=== PATIENT | female | born 1995 | race Caucasian/White ===

== ENCOUNTER 2017-07-27 13:02 | Observation (INO) | payer MEDICAID ==
--- NOTE | 2017-07-27 13:30 | CPEKG ---
Heart Rate: 132 RR Interval: 455 P-R Interval: 130 QRSD Interval: 88 QT Interval: 260 QTC Interval: 385 P [place]: 83 QRS [place]: 101 T Wave [place]: -84 EKG Severity - ABNORMAL ECG - EKG Impression: SINUS TACHYCARDIA Electronically Signed By: Jamie Palafox 27-Jul-2017 13:55:54
[2017-07-27] MEDS ORDERED: LORazepam 2 MG/ML INJ ONE (13:37)
[2017-07-27] MEDS ORDERED: LORazepam 2 MG/ML INJ IVP ONE ×3 (13:37→16:05)
--- NOTE | 2017-07-27 13:55 | EDPHY ---
H & P Stated Complaint: hyperventilating/asthma exacerbation Time Seen by Provider: 07/27/17 13:16 HPI/ROS: CHIEF COMPLAINT: Dyspnea HISTORY OF PRESENT ILLNESS: The patient presents to the ED with dyspnea, tachycardia and right-sided pleuritic chest pain. The patient reports a history of having this in the past and reportedly was diagnosed with anxiety. She reports she has been using cocaine over the past 2 days. The patient denies any asymmetric calf pain or swelling. The patient does use control pills. The patient denies history of fever, cough or congestion. She denies history of any cardiac abnormalities. The patient takes no additional medications. The patient states her dyspnea is moderate in nature. REVIEW OF SYSTEMS: A comprehensive 10 point review of systems is otherwise negative aside from elements mentioned in the history of present illness. Source: Patient Exam Limitations: No limitations - Personal History LMP (Females 10-55): 22-28 Days Ago Current Tetanus/Diphtheria Vaccine: Yes - Medical/Surgical History Hx Asthma: Yes Hx Chronic Respiratory Disease: No Hx Diabetes: No Hx Cardiac Disease: No Hx Renal Disease: No Hx Cirrhosis: No Hx Alcoholism: No Hx HIV/AIDS: No Hx Splenectomy or Spleen Trauma: No Other PMH: asthma - Social History Smoking Status: Never smoked - Physical Exam Exam: General Appearance: Alert, anxious, tachypneic Eyes: Pupils equal and round no pallor or injection ENT, Mouth: Mucous membranes moist Respiratory: There are no retractions, lungs are clear to auscultation Cardiovascular: Tachycardic Gastrointestinal: Abdomen is soft and nontender, no masses, bowel sounds normal Neurological: A&O, normal motor function, normal sensory exam, normal cranial nerves Skin: Warm and dry, no rashes Musculoskeletal: Neck is supple nontender Extremities: symmetrical, full range of motion Psychiatric: Patient is oriented X 3, there is no agitation Constitutional: Initial Vital Signs Temperature (C) 36.7 C 07/27/17 13:10 Heart Rate 103 H 07/27/17 13:10 Respiratory Rate 98 H 07/27/17 13:10 Blood Pressure 103/64 07/27/17 13:10 O2 Sat (%) 28 L 07/27/17 13:10 O2 Delivery Mode Room Air Allergies/Adverse Reactions: unsure Allergy (Uncoded 07/27/17 13:09) Home Medications: Medication Instructions Recorded Albuterol 07/27/17 Medical Decision Making - Diagnostics EKG Interpretation: EKG: Complete interpretation has been separately recorded in the [facility] archive. Summary impression: Sinus tachycardia, rate 132, nonspecific ST T wave changes noted Imaging Results: Imaging Impressions Chest X-Ray 07/27/17 13:34 Impression: Hyperexpansion with no focal abnormality identified.. ED Course/Re-evaluation: The patient presents to the ED with right-sided pleuritic chest pain, anxiety, tachycardia and tachypnea. The patient had an IV established. She received a L of normal saline. She received 1 mg of IV Ativan x2. Her initial EKG demonstrates sinus tachycardia. The patient's chest x-ray demonstrates no evidence of acute disease. The patient's troponin is normal. The patient received IV Toradol for ongoing chest pain. The patient was evaluated over several hours in the emergency department. She continues to complain of chest pain, anxiety and tachycardia. The patient received 50 mcg of fentanyl 4:00 p.m.. The patient will be admitted to the hospital in a setting of her ongoing tachycardia and chest pain. Consultation is made with Dr. Glynn from the hospitalist service. Differential Diagnosis: Differential diagnosis considered includes asthma, bronchitis, pneumonia, pulmonary embolism, sympathomimetic toxicity - Data Points Laboratory Results: Laboratory Results 07/27/17 13:40 07/27/17 13:40 07/27/17 07/27/17 07/27/17 14:00 13:40 13:40 WBC RBC Hgb Hct MCV MCH MCHC RDW Plt Count MPV Neut % (Auto) Lymph % (Auto) [place] % (Auto) Eos % (Auto) Baso % (Auto) Nucleat RBC Rel Count Absolute Neuts (auto) Absolute Lymphs (auto) Absolute Monos (auto) Absolute Eos (auto) Absolute Basos (auto) Absolute Nucleated RBC Immature Gran % Immature Gran # D-Dimer Sodium 139 mEq/L mEq/L (134-144) Potassium 3.9 mEq/L mEq/L (3.5-5.2) Chloride 103 mEq/L mEq/L (97-110) Carbon Dioxide 19 mEq/l L mEq/l (22-31) Anion Gap 17 mEq/L H mEq/L (8-16) BUN 14 mg/dL mg/dL (7-23) Creatinine 1.0 mg/dL mg/dL (0.6-1.0) Estimated GFR > 60 Glucose 82 mg/dL mg/dL (70-100) Calcium 10.7 mg/dL H mg/dL (8.5-10.4) Phosphorus 1.4 mg/dL L mg/dL (2.5-4.5) Troponin I < 0.012 ng/mL ng/mL (0.000-0.034) TSH 2.660 uIU/mL uIU/mL (0.465-4.680) Beta HCG, Qual NEGATIVE 07/27/17 07/27/17 13:40 13:40 WBC 9.11 10^3/uL 10^3/uL (3.80-9.50) RBC 5.54 10^6/uL H 10^6/uL (4.18-5.33) Hgb 16.9 g/dL H g/dL (12.6-16.3) Hct 45.9 % % (38.0-47.0) MCV 82.9 fL fL (81.5-99.8) MCH 30.5 pg pg (27.9-34.1) MCHC 36.8 g/dL H g/dL (32.4-36.7) RDW 11.8 % % (11.5-15.2) Plt Count 278 10^3/uL 10^3/uL (150-400) MPV 9.6 fL fL (8.7-11.7) Neut % (Auto) 66.6 % % (39.3-74.2) Lymph % (Auto) 24.6 % % (15.0-45.0) [place] % (Auto) 6.7 % % (4.5-13.0) Eos % (Auto) 1.1 % % (0.6-7.6) Baso % (Auto) 0.7 % % (0.3-1.7) Nucleat RBC Rel Count 0.0 % % (0.0-0.2) Absolute Neuts (auto) 6.07 10^3/uL 10^3/uL (1.70-6.50) Absolute Lymphs (auto) 2.24 10^3/uL 10^3/uL (1.00-3.00) Absolute Monos (auto) 0.61 10^3/uL 10^3/uL (0.30-0.80) Absolute Eos (auto) 0.10 10^3/uL 10^3/uL (0.03-0.40) Absolute Basos (auto) 0.06 10^3/uL 10^3/uL (0.02-0.10) Absolute Nucleated RBC 0.00 10^3/uL 10^3/uL (0-0.01) Immature Gran % 0.3 % % (0.0-1.1) Immature Gran # 0.03 10^3/uL 10^3/uL (0.00-0.10) D-Dimer < 0.27 ug/mLFEU ug/mLFEU (0.00-0.50) Sodium Potassium Chloride Carbon Dioxide Anion Gap BUN Creatinine Estimated GFR Glucose Calcium Phosphorus Troponin I TSH Beta HCG, Qual Medications Given: Discontinued Medications Ketorolac Tromethamine (Toradol) 30 mg IVP EDNOW ONE Stop: 07/27/17 15:32 Last Admin: 07/27/17 15:35 Dose: 30 mg Lorazepam (Ativan Injection) 1 mg IVP EDNOW ONE Stop: 07/27/17 13:38 Last Admin: 07/27/17 13:43 Dose: 1 mg Lorazepam (Ativan Injection) 1 mg IVP EDNOW ONE Stop: 07/27/17 14:22 Last Admin: 07/27/17 14:45 Dose: 1 mg Departure - Departure Disposition: [facility] Inpatient Acute Clinical Impression: Chest pain, Anxiety, Tachycardia Condition: Fair Referrals: [facility] [Other] - As per Instructions
[2017-07-27 14:02] LABS: % IMMATURE GRANULYOCYTES 0.3 % (0.0-1.1); ABSOLUTE IMMATURE GRANULOCYTES 0.03 10^3/uL (0.00-0.10); ADD DIFF? NO; ADD MORPH? NO; ADD SCAN? NO; ATYPICAL LYMPHOCYTE FLAG 10 (0-99); FRAGMENT RBC FLAG 0 (0-99); HEMATOCRIT 45.9 % (38.0-47.0); HEMOGLOBIN 16.9 g/dL (12.6-16.3); LEFT SHIFT FLG 0 (0-99); LIPEMIA HEMOLYSIS FLAG 90 (0-99); MEAN CELL HEMOGLOBIN 30.5 pg (27.9-34.1); MEAN CELL HEMOGLOBIN CONCENTR. 36.8 g/dL (32.4-36.7); MEAN CELL VOLUME 82.9 fL (81.5-99.8); MEAN PLATELET VOLUME 9.6 fL (8.7-11.7); PLATELET CLUMPS FLAG 10 (0-99); PLATELET COUNT 278 10^3/uL (150-400); RED BLOOD CELL COUNT 5.54 10^6/uL (4.18-5.33); RED CELL DISTRIBUTION WIDTH 11.8 % (11.5-15.2)
[2017-07-27 14:04] LABS: ANION GAP 17 mEq/L (8-16); CALCIUM 10.7 mg/dL (8.5-10.4); CARBON DIOXIDE 19 mEq/l (22-31); CHLORIDE 103 mEq/L (97-110); GLOMERULAR FILTRATION RATE > 60; GLUCOSE 82 mg/dL (70-100); POTASSIUM 3.9 mEq/L (3.5-5.2); SODIUM 139 mEq/L (134-144)
[2017-07-27 14:16] LABS: TROPONIN I < 0.012 ng/mL (0.000-0.034)
[2017-07-27] MEDS ORDERED: KETOROLAC 30 MG/1 ML SDV IVP ONE (15:31)
[2017-07-27] MEDS ORDERED: fentaNYL 100 MCG/2 ML INJ ONE (15:53)
[2017-07-27] MEDS ORDERED: NS 1,000 ML IV ONE ×2 (15:55→17:40)
[2017-07-27] MEDS ORDERED: fentaNYL 100 MCG/2 ML INJ IVP ONE (15:55)
[2017-07-27] MEDS ORDERED: ONDANSETRON DISINTEGRATING 4 MG TAB PO PRN (17:40)
[2017-07-27] MEDS ORDERED: ACETAMINOPHEN 325 MG TAB PO PRN (17:40)
[2017-07-27] MEDS ORDERED: LORazepam 2 MG/ML INJ IVP PRN (17:40)
[2017-07-27] MEDS ORDERED: ONDANSETRON 4 MG/2 ML VIAL IVP PRN (17:40)
[2017-07-27] MEDS ORDERED: 1/2 NS 1,000 ML IV SCH (17:45)
[2017-07-27] MEDS ORDERED: AUBRA PO SCH (18:00)
--- NOTE | 2017-07-27 18:14 | GHP ---
[f rep st] HISTORY AND PHYSICAL DATE OF ADMISSION: 07/27/2017 CHIEF COMPLAINT: Anxiety. HISTORY OF PRESENT ILLNESS: This is a 21-year-old female with a history of anxiety as well as asthma . She has had a difficult week with a lot of stress. She has had 2 nights of using cocaine. The fi rst night, she did not sleep at all, and then last night she did sleep a couple hours. She woke up t his morning and felt quite anxious. She thought she was having an asthma attack and took several dos es of albuterol. This did not help. She did have some chest pressure, but this seems to be improvin g. She does not usually get heart palpitations. REVIEW OF SYSTEMS: A 10-point review of systems was obtained, and other than stated was negative. PAST MEDICAL HISTORY: Anxiety, asthma. MEDICATIONS: control and albuterol. SOCIAL HISTORY: No smoking. Does not use cocaine regularly. FAMILY HISTORY: Reviewed and noncontributory. PHYSICAL EXAM: VITAL SIGNS: Afebrile, blood pressure is 148/97, heart rate is 119, oxygen saturatio n 99% on room air. GENERAL: The patient is actually quite thin, but in no apparent distress. HEENT : Nonicteric sclerae. Extraocular movements intact. Moist mucous membranes. NECK: Supple. No th yromegaly. LUNGS: Good effort. Clear to auscultation bilaterally. CARDIOVASCULAR: Tachycardic. No murmurs, rubs, gallops. ABDOMEN: Positive bowel sounds. Soft, nontender, nondistended. No hepa tosplenomegaly. EXTREMITIES: No clubbing, cyanosis, or edema. SKIN: Without rash. Dry, intact. NEUROLOGIC: Alert and oriented x3. Moving all 4 extremities equally. PSYCHIATRIC: Normal affect. LABS: Hemoglobin a little bit high. Does show a mild anion gap acidosis. Calcium of 10 and phospho josh a little bit low at 1.4. TSH is 2.6. Beta hCG is negative. EKG personally reviewed and interpreted, shows sinus tachycardia. Chest x-ray personally reviewed and interpreted, is negative. ASSESSMENT: This is a 21-year-old female presenting with tachycardia after 2 nights of using cocaine . PLAN: 1. Sinus tachycardia: Probably related to anxiety and cocaine use, and possibly the albuterol that she took in the morning. I am going to watch her overnight. I think she is also probably a little b it dehydrated. Will give another liter of fluid. Will check an echocardiogram in the morning, just for completeness' sake. If her heart rate returns back to normal, could probably cancel that in the morning. 2. Low phosphorus: Patient is actually quite thin and I guess there is a possibility that there may be some anorexia. I am going to check a pre-albumin and see what her phosphorus is in the morning. She could also have just not eaten for the last couple days. 3. Anxiety: Patient is not really taking any psychiatric medications. I guess could consider SSRI. 4. Asthma: Lungs sounding pretty clear. Will hold off on any beta agonist. /[id number]/MODL
[2017-07-27 18:24] LABS: PREALBUMIN 28.6 mg/dL (17.6-36.0)
[2017-07-27] MEDS: LORazepam 0.5 MG TAB PO PRN (20:30)
[2017-07-28 03:29] VITALS: RESP 17
[2017-07-28 03:59] LABS: % IMMATURE GRANULYOCYTES 0.4 % (0.0-1.1); ABSOLUTE IMMATURE GRANULOCYTES 0.03 10^3/uL (0.00-0.10); ADD DIFF? NO; ADD MORPH? NO; ADD SCAN? NO; ATYPICAL LYMPHOCYTE FLAG 10 (0-99); FRAGMENT RBC FLAG 0 (0-99); HEMATOCRIT 38.6 % (38.0-47.0); HEMOGLOBIN 14.1 g/dL (12.6-16.3); LEFT SHIFT FLG 0 (0-99); LIPEMIA HEMOLYSIS FLAG 90 (0-99); MEAN CELL HEMOGLOBIN 31.3 pg (27.9-34.1); MEAN CELL HEMOGLOBIN CONCENTR. 36.5 g/dL (32.4-36.7); MEAN CELL VOLUME 85.8 fL (81.5-99.8); MEAN PLATELET VOLUME 9.5 fL (8.7-11.7); PLATELET CLUMPS FLAG 30 (0-99); PLATELET COUNT 201 10^3/uL (150-400); RED CELL DISTRIBUTION WIDTH 12.1 % (11.5-15.2)
[2017-07-28 04:22] LABS: ALANINE AMINOTRANSFERASE 36 IU/L (9-52); ALBUMIN 3.4 g/dL (3.5-5.0); ALKALINE PHOSPHATASE 48 IU/L (38-126); ANION GAP 11 mEq/L (8-16); ASPARTATE AMINOTRANSFERASE 25 IU/L (14-46); BILIRUBIN,TOTAL 0.7 mg/dL (0.1-1.4); CALCIUM 8.7 mg/dL (8.5-10.4); CARBON DIOXIDE 17 mEq/l (22-31); CHLORIDE 113 mEq/L (97-110); CREATININE 0.8 mg/dL (0.6-1.0); GLOMERULAR FILTRATION RATE > 60; GLUCOSE 92 mg/dL (70-100); POTASSIUM 4.2 mEq/L (3.5-5.2); SODIUM 141 mEq/L (134-144)
[2017-07-28 11:20] VITALS: BP 116/61; PULSE 94; TEMP 97.8; O2SAT 98
--- NOTE | 2017-07-28 11:28 | ECHO ---
[email or web address] [address] Main: [phone] Fax: Transthoracic Echocardiogram Name: DULCE MARIA AMBROSE MR#: [id number] Study Date: 07/28/2017 Study Time: 09:56 AM Date of : 1995 Age: 21 year(s) Height: 170.2 cm (67 in.) Weight: 50.35 kg (111 lb.) BSA: 1.57 m2 Gender: Female Examination: Echo Indication: tachycardia Image Quality: Adequate Contrast: Requested by: Yariel Glynn BP: 98 mmHg/62 mmHg Heart Rate: Rhythm: Sinus tachycardia Indication: tachycardia Procedure Staff Chief Contract Officer: Sirena Phillips Physician: Lauro Chadwick Requesting Provider: Conclusions: Normal size left ventricle. EF is 64 %. No regional wall motion abnormality. Normal diastolic LV function. Normal appearing vavlular structures. Trivial mitral valve regurgitation. Pulmonary artery pressure is not obtained due to inadequate TR jet. No pericardial effusion. Measurements: Chambers Valvular Assessment AV/MV Valvular Assessment TV/PV Normal Normal Normal Name Value Range Name Value Range Name Value Range Ao Micki (MM): 2.1 cm (2.2 cm-3.7 AV Vmax: 1.30 m/s (1 m/s-1.7 PV Vmax: 0.81 m/s (0.6 m/s-0.9 cm) m/s) m/s) IVSd (2D): 0.7 cm (0.6 cm-1.1 AV maxP mmHg ( - ) PV PGmax: 3 mmHg ( - ) cm) LVOT Vmax: 0.99 m/s (0.7 m/s-1.1 LVDd (2D): 4.0 cm (3.9 cm-5.3 m/s) cm) MV E Vmax: 0.66 m/s ( - ) LVDs (2D): 2.8 cm (2.1 cm-4 MV A Vmax: 0.59 m/s ( - ) cm) MV E/A: 1.12 ( - ) LVPWd (2D): 0.6 cm ( - ) LVEF (MOD4): 64 % (>=55 %) RVDd(2D): 2.4 cm (1.9 cm-3.8 cmmm) Continued Measurements: Chambers Valvular Assessment AV/MV Name Value Name Value Patient: DULCE MARIA AMBROSE Study Date: 07/28/2017 Page 1 of 2 09:56 AM LADs Lon.4 cm MV E/E' Septal: 9.40 LA Area: 8.2 cm2 MV E/E' Lateral: 6.10 RA Area: 7.5 cm2 Findings: Left Ventricle: Normal size left ventricle. No LV hypertrophy. Normal global systolic LV function. EF is 64 %. No regional wall motion abnormality. Normal diastolic LV function. Right Ventricle: Normal size right ventricle. Normal RV function. Left Atrium: The left atrium is normal in size. Right Atrium: The right atrium is normal in size. Mitral Valve: The mitral valve is normal in appearance and function. Trivial mitral valve regurgitation. Aortic Valve: The aortic valve is normal in appearance and function. There is no aortic valve regurgitation. No aortic valve stenosis is present. Tricuspid Valve: The tricuspid valve is normal in appearance and function. There is no tricuspid valve regurgitation. Pulmonary artery pressure is not obtained due to inadequate TR jet. Pulmonic Valve: The pulmonic valve is normal in appearance and function. There is no pulmonic regurgitation seen. Aorta: The aorta is normal. Normal size aortic root measuring 2.1 cm. Pericardium: No pericardial effusion. (No Signature Object) Patient: DULCE MARIA AMBROSE Study Date: 07/28/2017 Page 2 of 2 09:56 AM [id number]
[2017-07-28] MEDS: LORazepam 0.5 MG TAB PO PRN (11:35)
--- NOTE | 2017-07-28 11:50 | HOSPPROG ---
Hospitalist Progress Note Assessment/Plan: #Anxiety attack: very tearful this morning. Ativan. Will start SSRI with frequent episodes at home. Needs to reestablish care with her therapist -start Paxil #Tachycardia: due to cocaine, dehydration. Dimer and echo normal #Cocaine use: does not use regularly. Advised to not use #Disp: DC with mom today Subjective: anxious and very stressed lastely Objective: Vital Signs Temp Pulse Resp BP Pulse Ox 36.6 C 94 17 116/61 98 07/28/17 11:17 07/28/17 11:17 07/28/17 11:17 07/28/17 11:17 07/28/17 11:17 Laboratory Results 07/28/17 03:28 07/28/17 03:28 07/27/17 07/28/17 07/29/17 05:59 05:59 05:59 Intake Total 2618 480 Balance 2618 480 - Physical Exam Constitutional: uncomfortable, other (panicked, crying) Ears, Nose, Mouth, Throat: moist mucous membranes Cardiovascular: tachycardia Respiratory: no respiratory distress, other (shallow breaths, using accessory muscles) Gastrointestinal: normoactive bowel sounds Genitourinary: no bladder fullness Skin: warm Musculoskeletal: full muscle strength Neurologic: AAOx3 Psychiatric: anxious ICD10 Worksheet Patient Problems: Problems Problem Status Onset Anxiety Acute Chest pain Acute Tachycardia Acute
--- NOTE | 2017-07-28 12:25 | ASMTCMCOM ---
CM Note CM Note Notes: 07/28/2018 Case Management Note Met w/pt, mother and boyfriend Rajinder. 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 She has a new job at an [employer]. She expresses that she is struggling with anxiety. Case Management provided phone number and address to [facility] in [place] for follow up with her PCP at the recommendation of Dr. Murphy. No further Case Management d/c needs identified. Family to transport home at d/c. Case Management d/c poc: home independent with follow up as directed. Date Signed: 07/28/2017 12:25 PM Electronically Signed By:Yvonne Lopez RN
--- NOTE | 2017-07-28 14:18 | CPEKG ---
Heart Rate: 114 RR Interval: 526 P-R Interval: 156 QRSD Interval: 94 QT Interval: 324 QTC Interval: 447 P [place]: 75 QRS [place]: 104 T Wave [place]: 1 EKG Severity - BORDERLINE ECG - EKG Impression: SINUS TACHYCARDIA EKG Impression: BORDERLINE RIGHT AXIS DEVIATION EKG Impression: MINIMAL ST DEPRESSION, INFERIOR LEADS Electronically Signed By: Hermelinda Shields 28-Jul-2017 17:47:04
--- NOTE | 2017-07-28 15:57 | GDS ---
[f rep st] DISCHARGE SUMMARY DISCHARGE DIAGNOSES: 1. Anxiety with panic attacks 2 Tachycardia. 3. Cocaine use. 4. Suspected eating disorder. HISTORY OF PRESENT ILLNESS: A 21-year-old female with a past medical history of reported anxiety and asthma who presents with tachycardia. She says she has been under a lot of stress with school and other issues and used cocaine on Friday and Friday night. The first night she did not sleep at all and the night prior to admission, she only slept a couple hours. She woke morning of admission and felt very anxious, thought she was having an asthma attack and took several doses of albuterol. She did notice some chest pressure. HOSPITAL COURSE: 1. Sinus tachycardia: related to anxiety and cocaine use along with extra albuterol: She was hydrated and tachycardia improved. Echocardiogram was unremarkable. D-dimer was negative. 2. Anxiety: had several anxiety attacks this morning and weekly at home. Recommend she returns to her therapist. Start Prozac 20 mg daily and she is agreeable. 3. Hypophosphatemia: The patient is quite thin. Suspect she might have a component of eating disorder. Should follow up with her primary care physician. 4. Asthma. Resume albuterol. 5. Cocaine use: advised cessation DISPOSITION: Patient is stable for discharge home with her mother. NEW MEDICATIONS: Prozac 20 mg daily. FOLLOW UP: 1. Her primary care physician. 2. Her previous therapist as anxiety attacks are occurring more frequently. /[id number]/MODL MTDD
--- NOTE | 2017-07-28 16:08 | ASDISCHSUM ---
Discharge Information Plan Status:Home with No Needs Medically Cleared to Leave:07/27/2017 Discharge Date:07/28/2017 03:34 PM CM D/C Disposition:Home, Routine, Self-Care ADT D/C Disposition:Home, Routine, Self-Care Projected Discharge Date:07/28/2017 03:34 PM Transportation at D/C:Family Discharge Delay Reason: Follow-Up Date:07/28/2017 03:34 PM Discharge Slot: Final Diagnosis: Placement Information Patient Contact Information Contact Name:RUTH Relationship:Other Address: Work Phone: City: [facility] Phone: State/[place] Code: Email: Financial Information Financial Class: Primary Plan Desc:MEDICAID HEALTH FIRST AGING ROOM HAND Primary Plan Number:[id number] Secondary Plan Desc: Secondary Plan Number: Assessment Information [facility] CM Progress Note CM Note CM Note Notes: 07/28/2018 Case Management Note Met w/pt, mother and boyfriend Rajinder. 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 She has a new job at an [employer]. She expresses that she is struggling with anxiety. Case Management provided phone number and address to [facility] in [place] for follow up with her PCP at the recommendation of Dr. Murphy. No further Case Management d/c needs identified. Family to transport home at d/c. Case Management d/c poc: home independent with follow up as directed. Date Signed: 07/28/2017 12:25 PM Electronically Signed By:Yvonne Lopez RN Intervention Information
== END 2017-07-28 15:34 | disposition home or self-care (01) ==
LOC: F2W 17:52
PROVIDERS: ADMIT Internal Medicine; ATTEND Internal Medicine
DX: F41.0 Panic disorder [episodic paroxysmal anxiety] (principal); F14.90 Cocaine use, unspecified, uncomplicated; R00.0 Tachycardia, unspecified; E86.0 Dehydration
CPT/HCPCS: 84134-90; 96374; G0378; J1885; J2060; J2405; J3010

== ENCOUNTER 2017-11-20 04:45 | Emergency (ER) | payer MEDICAID ==
[2017-11-20] MEDS ORDERED: ACETAMINOPHEN 500 MG TAB PO ONE (05:14)
[2017-11-20] MEDS ORDERED: KETOROLAC 30 MG/1 ML SDV IM ONE (05:14)
[2017-11-20] MEDS ORDERED: KETOROLAC 15 MG/1 ML SDV IVP ONE (05:14)
--- NOTE | 2017-11-20 05:40 | EDPHY ---
H & P Stated Complaint: abd cramping, on period, new BC Time Seen by Provider: 11/20/17 04:51 HPI/ROS: HPI The patient presents with lower abdominal cramping which is been present for the last 1 day which is getting progressively worse and has been constant. It coincides with her menses which started 1 day ago. It is moderate in severity. She has been taking Midol for this with minimal relief. She recently changed her OCP about 3 weeks ago and this is her 1st menses on the new medication. Previous to this she had irregular menses that did not have associated pain. She does not have any vaginal discharge or fever. The pain radiates to her back.. REVIEW OF SYSTEMS Constitutional: No fever, no chills. Eyes: No discharge. ENT: No sore throat. Cardiovascular: No chest pain, no palpitations. Respiratory: No cough, no shortness of breath. Gastrointestinal: Positive for abdominal pain, no vomiting. Genitourinary: No hematuria. Musculoskeletal: No back pain. Skin: No rashes. Neurological: No headache. PMHx: Healthy Soc Hx: Here with her boyfriend PHYSICAL General Appearance: Alert, no distress Eyes: Pupils equal and round no pallor or injection ENT, Mouth: Mucous membranes moist Respiratory: There are no retractions, lungs are clear to auscultation Cardiovascular: Regular rate and rhythm Gastrointestinal: Abdomen is soft with mild tenderness in lower quadrants, no masses, bowel sounds normal Neurological: A&O, moves all extremities Skin: Warm and dry, no rashes Musculoskeletal: Neck is supple non tender Extremities: symmetrical, full range of motion Psychiatric: Patient is oriented X 3, there is no agitation Source: Patient Exam Limitations: No limitations - Personal History LMP (Females 10-55): Now Current Tetanus Diphtheria and Acellular Pertussis (TDAP): Yes - Medical/Surgical History Hx Asthma: Yes Hx Chronic Respiratory Disease: No Hx Diabetes: No Hx Cardiac Disease: No Hx Renal Disease: No Hx Cirrhosis: No Hx Alcoholism: No Hx HIV/AIDS: No Hx Splenectomy or Spleen Trauma: No Other PMH: asthma - Social History Smoking Status: Never smoked Constitutional: Initial Vital Signs Temperature (C) 36.6 C 11/20/17 04:47 Heart Rate 73 11/20/17 04:47 Respiratory Rate 18 11/20/17 04:47 Blood Pressure 116/76 11/20/17 04:47 O2 Sat (%) 99 11/20/17 04:47 O2 Delivery Mode Room Air Allergies/Adverse Reactions: No Known Allergies Allergy (Unverified 11/20/17 04:46) Home Medications: Medication Instructions Recorded Albuterol [Proventil Inhaler HFA 2 puffs IH Q4 PRN 07/27/17 (*)] Aubra 1 tab PO DAILY@18 07/27/17 Herbals/Supplements -Info Only 1 ea PO DAILY 07/27/17 Multivitamins [Multivitamin (*)] 1 tab PO DAILY 07/27/17 FLUoxetine [Prozac 20 MG (*)] 20 mg PO DAILY #30 cap 07/28/17 Medical Decision Making Differential Diagnosis: This is a 21-year-old female who presents with lower abdominal cramping in the setting of her menses on a new OCP. On exam, vital signs are normal, she does have lower abdominal tenderness. Differential diagnosis includes dysmenorrhea, endometriosis, ovarian cyst. In the emergency department, the patient was given Toradol and Tylenol with much improvement in her symptoms. She felt that her pain had subsided completely. I feel she is likely suffering from dysmenorrhea and have discussed this with her. I have encouraged her to use ibuprofen with Tylenol until she is feeling better. She will be discharged from the emergency department. - Data Points Medications Given: Discontinued Medications Acetaminophen (Tylenol) 1,000 mg PO EDNOW ONE Stop: 11/20/17 05:15 Last Admin: 11/20/17 05:18 Dose: 1,000 mg Ketorolac Tromethamine (Toradol) 15 mg IVP EDNOW ONE Stop: 11/20/17 05:15 Last Admin: 11/20/17 05:27 Dose: Not Given Ketorolac Tromethamine (Toradol) 30 mg IM EDNOW ONE Stop: 11/20/17 05:15 Last Admin: 11/20/17 05:19 Dose: 30 mg Departure - Departure Disposition: Home, Routine, Self-Care Clinical Impression: Abdominal cramping Condition: Good Instructions: Dysmenorrhea (ED) Additional Instructions: I recommend you take ibuprofen 400 mg with acetaminophen 650 mg every 6 hr as needed for pain. Referrals: NONE *PRIMARY CARE P,. [Primary Care Provider] - As per Instructions
[2017-11-20 05:42] VITALS: BP 123/77
== END 2017-11-20 05:50 | disposition home or self-care (01) ==
DX: R10.30 Lower abdominal pain, unspecified (principal); J45.909 Unspecified asthma, uncomplicated
CPT/HCPCS: J1885